=== PATIENT | female | born 1945 | race Caucasian/White ===

== ENCOUNTER 2017-12-04 14:56 | Emergency (ER) | payer MEDICARE ==
[2017-12-04 16:27] LABS: ADD MAN DIFF? NO
[2017-12-04 16:30] LABS: BASO # 0.1 x10^3/uL (0.0-0.2); BASO % 1 % (0-3); EOS # 0.4 x10^3/uL (0.0-0.7); EOS % 5 % (0-3); HEMATOCRIT 38.8 % (36.0-47.0); LYMPH # 2.6 x10^3/uL (1.0-4.8); LYMPH % 37 % (24-48); MEAN CORPUSCULAR HEMOGLOBIN 31 pg (25-35); MEAN CORPUSCULAR HGB CONC 34 g/dL (31-37); MEAN CORPUSCULAR VOLUME 93 fL (79-100); MONO # 0.4 x10^3/uL (0.0-1.1); MONO % 6 % (0-9); NEUT # 3.6 x10^3uL (1.8-7.7); NEUT % 51 % (31-73); PLATELET COUNT 198 x10^3/uL (140-400); RED BLOOD COUNT 4.16 x10^6/uL (3.50-5.40); RED CELL DISTRIBUTION WIDTH 13.8 % (11.5-14.5); WHITE BLOOD COUNT 7.1 x10^3/uL (4.0-11.0)
[2017-12-04 16:36] LABS: BILIRUBIN,URINE NEGATIVE (NEG); CLARITY,URINE CLEAR; COLOR,URINE YELLOW; GLUCOSE,URINE NEGATIVE (NEG); NITRITE,URINE POSITIVE (NEG); PROTEIN,URINE NEGATIVE (NEG-TRACE)
[2017-12-04 16:37] LABS: ANION GAP 10 (6-14); BLOOD UREA NITROGEN 15 mg/dL (7-20); BUN/CREATININE RATIO 15 (6-20); CALCIUM 9.1 mg/dL (8.5-10.1); CARBON DIOXIDE 28 mmol/L (21-32); CHLORIDE 105 mmol/L (98-107); GFR 54.8; GLUCOSE 88 mg/dL (70-99); SODIUM 143 mmol/L (136-145)
[2017-12-04 16:43] LABS: ALBUMIN 3.6 g/dL (3.4-5.0); ALK PHOS 60 U/L (46-116); ALT (SGPT) 28 U/L (14-59); AST (SGOT) 17 U/L (15-37); LIPASE 250 U/L (73-393); TOTAL BILIRUBIN 0.4 mg/dL (0.2-1.0); TOTAL PROTEIN 7.2 g/dL (6.4-8.2)
[2017-12-04] MEDS ORDERED: IOHEXOL 300 MG/ML 100ML VIAL. IV (16:45)
[2017-12-04 16:50] LABS: BACTERIA,URINE MANY /HPF (0-FEW); HYALINE CASTS, URINE FEW /HPF; SQUAMOUS EPITHELIAL CELL,UR MOD /LPF; WBC,URINE 20-40 /HPF (0-4)
[2017-12-04] MEDS ORDERED: CONTRAST GIVEN MC (17:00)
== END 2017-12-04 19:36 | disposition home or self-care (01) ==
LOC: ER 14:56
DX: N39.0 Urinary tract infection, site not specified (principal); K59.00 Constipation, unspecified; I10 Essential (primary) hypertension; F41.9 Anxiety disorder, unspecified; F32.9 Major depressive disorder, single episode, unspecified; M81.0 Age-related osteoporosis without current pathological fracture; Z90.49 Acquired absence of other specified parts of digestive tract; Z88.8 Allergy status to other drugs, medicaments and biological substances
CPT/HCPCS: 36415; 74177; 80053; 81001; 83690; 85025; 96365; 99285-25; J0690

== ENCOUNTER → 2017-12-10 | Outpatient (CLI) | payer MEDICARE | END | disposition home or self-care (01) | LOC: KCIC MAMMO 14:58 | DX: Z12.31 Encounter for screening mammogram for malignant neoplasm of breast (principal) | CPT/HCPCS: 77067 ==

== ENCOUNTER 2018-04-21 11:25 | Emergency (ER) | payer MEDICARE ==
[~2018-04-21] VITALS: Ht 157.5 cm; Wt 68.0 kg
[~2018-04-21 11:25] MED LIST: CEPH500T PO
[2018-04-21 11:58] VITALS: BP 163/90
[2018-04-21 12:37] LABS: BASO # 0.1 x10^3/uL (0.0-0.2); BASO % 1 % (0-3); EOS # 0.2 x10^3/uL (0.0-0.7); EOS % 2 % (0-3); HEMATOCRIT 41.4 % (36.0-47.0); HEMOGLOBIN 14.1 g/dL (12.0-15.5); LYMPH # 2.1 x10^3/uL (1.0-4.8); LYMPH % 25 % (24-48); MEAN CORPUSCULAR HEMOGLOBIN 32 pg (25-35); MEAN CORPUSCULAR HGB CONC 34 g/dL (31-37); MEAN CORPUSCULAR VOLUME 93 fL (79-100); MONO # 0.6 x10^3/uL (0.0-1.1); MONO % 7 % (0-9); NEUT # 5.4 x10^3uL (1.8-7.7); NEUT % 65 % (31-73); PLATELET COUNT 191 x10^3/uL (140-400); RED BLOOD COUNT 4.46 x10^6/uL (3.50-5.40); RED CELL DISTRIBUTION WIDTH 15.3 % (11.5-14.5); WHITE BLOOD COUNT 8.4 x10^3/uL (4.0-11.0)
[2018-04-21 12:37] LABS: BILIRUBIN,URINE NEGATIVE (NEG); CLARITY,URINE CLEAR; COLOR,URINE YELLOW; NITRITE,URINE NEGATIVE (NEG); PH,URINE 5.5; PROTEIN,URINE NEGATIVE (NEG-TRACE); UROBILINOGEN,URINE 0.2 mg/dL (0.2 mg/dL)
[2018-04-21 12:43] LABS: BACTERIA,URINE FEW /HPF (0-FEW); RBC,URINE 0 /HPF (0-2); SQUAMOUS EPITHELIAL CELL,UR FEW /LPF
[2018-04-21 12:46] LABS: CALCIUM 9.4 mg/dL (8.5-10.1); GFR 54.8
[2018-04-21 12:52] LABS: ALBUMIN 4.1 g/dL (3.4-5.0); ALBUMIN/GLOBULIN RATIO 1.1 (1.0-1.7); TOTAL BILIRUBIN 0.4 mg/dL (0.2-1.0); TOTAL PROTEIN 7.7 g/dL (6.4-8.2)
[2018-04-21 12:58] LABS: PROTHROMBIN TIME PATIENT 11.7 SEC (11.7-14.0)
[2018-04-21] MEDS ORDERED: fentaNYL PF VIAL 100 MCG/2 ML VIAL IV ONE (13:00)
--- NOTE | 2018-04-21 14:19 | RAD ---
CT Abdomen and Pelvis without contrast History: Left flank pain for a week Technique: Noncontrast CT imaging was performed of the abdomen and pelvis. Multiplanar images are reviewed. Exposure: One or more of the following individualized dose reduction techniques were utilized for this examination: 1. Automated exposure control 2. Adjustment of the mA and/or kV according to patient size 3. Use of iterative reconstruction technique. Comparison: December 04, 2017 Findings: Accurate evaluation of abdominal visceral organs is limited without intravenous contrast. There is no obvious focal abnormality of the spleen, liver, or pancreas. Previously seen hypodense lesion of the right lobe liver is poorly seen on this noncontrast exam. There has been cholecystectomy. There is diffuse hepatic steatosis. There is no adrenal nodularity. There is somewhat lobulated contour of the bilateral kidneys. There is no hydronephrosis or renal calculus. No convincing ureteral calculus is identified. Accurate evaluation of bowel is limited without oral contrast. There is no significant free air, free fluid, bowel dilatation. There is retained stool greater of the right colon and transverse colon. There is atherosclerotic calcification abdominal aorta. There is multilevel lumbar facet degenerative change. There is more advanced degenerative disc disease L3-4 as seen previously. There is some coronary calcification. While a small 0.3 to 0.4 cm left lower lobe nodule is possible and not seen on previous exam, this could be due to atelectasis. There is reverse S-shaped scoliosis of the thoracolumbar spine. Impression: 1. There is no urolithiasis or hydronephrosis. 2. There is hepatic steatosis. 3. There is retained stool greater of the right and transverse colon. Electronically signed by: Fran Molina MD (04/21/2018 2:16 PM) [id number]
[2018-04-21] MEDS ORDERED: MORPHINE SULFATE 4 MG/ML VIAL. IV ONE (15:00)
--- NOTE | 2018-04-21 15:37 | PHYS DOC ---
Past Medical History Past Medical History: Arthritis, Hypertension Additional Past Medical Histor: OSTEOPOROSIS Past Surgical History: Cholecystectomy, Hysterectomy Additional Past Surgical Histo: TUMOR REMOVED FROM ABDOMEN Alcohol Use: None Drug Use: None Adult General Chief Complaint Chief Complaint: ABDOMINAL PAIN HPI HPI Patient is a 72 year old female presented to the ER for evaluation of left side abdominal pain for 1 week. Patient denied any nausea or vomiting. No fever. No blood in stool, no vomiting blood. Patient said the pain was off and on. She has no history of kidney stone. no CHEST PAIN, NO SHORTNESS OF AIR. Review of Systems Review of Systems Constitutional: Denies fever or chills [] Eyes: Denies change in visual acuity, redness, or eye pain [] HENT: Denies nasal congestion or sore throat [] Respiratory: Denies cough or shortness of breath [] Cardiovascular: No additional information not addressed in HPI [] GI: Positive for abdominal pain, NO nausea, vomiting, bloody stools or diarrhea [] : Denies dysuria or hematuria [] Musculoskeletal: Denies back pain or joint pain [] Integument: Denies rash or skin lesions [] Neurologic: Denies headache, focal weakness or sensory changes [] Endocrine: Denies polyuria or polydipsia [] All other systems were reviewed and found to be within normal limits, except as documented in this note. Current Medications Current Medications Current Medications Medications (Trade) Dose Ordered Sig/Mary Jo Start Time Stop Time Status Last Admin Dose Admin Fentanyl Citrate (Fentanyl 2ml Vial) 75 mcg 1X ONCE 04/21/18 13:00 04/21/18 13:01 DC 04/21/18 13:17 75 MCG Morphine Sulfate (Morphine Sulfate) 4 mg 1X ONCE 04/21/18 15:00 18 15:01 DC 04/21/18 15:16 4 MG Allergies Allergies Allergies Coded Allergies Type Severity Reaction Last Updated Verified povidone-iodine Allergy Unknown 01/15/15 No Physical Exam Physical Exam Constitutional: Well developed, well nourished, no acute distress, non-toxic appearance. [] HENT: Normocephalic, atraumatic, bilateral external ears normal, oropharynx moist, no oral exudates, nose normal. [] Eyes: PERRLA, EOMI, conjunctiva normal, no discharge. [] Neck: Normal range of motion, no tenderness, supple, no stridor. [] Cardiovascular:Heart rate regular rhythm, no murmur [] Lungs & Thorax: Bilateral breath sounds clear to auscultation [] Abdomen: Bowel sounds normal, soft, LLQ tenderness TO PALPATION, no masses, no pulsatile masses. [] Skin: Warm, dry, no erythema, no rash. [] Back: No tenderness, no CVA tenderness. [] Extremities: No tenderness, no cyanosis, no clubbing, ROM intact, no edema. [] Neurologic: Alert and oriented X 3, normal motor function, normal sensory function, no focal deficits noted. [] Psychologic: Affect normal, judgement normal, mood normal. [] Current Patient Data Vital Signs Vital Signs Date Time Temp Pulse Resp B/P (MAP) Pulse Ox O2 Delivery O2 Flow Rate FiO2 04/21/18 11:58 97.5 73 20 163/90 (114) 97 Room Air 97.5 Lab Values Laboratory Tests Test 04/21/18 12:15 04/21/18 12:20 Urine Collection Type Unknown Urine Color Yellow Urine Clarity Clear Urine pH 5.5 Urine Specific [place] 1.010 Urine Protein Negative mg/dL (NEG-TRACE) Urine Glucose (UA) Negative mg/dL (NEG) Urine Ketones (Stick) Negative mg/dL (NEG) Urine Blood Negative (NEG) Urine Nitrite Negative (NEG) Urine Bilirubin Negative (NEG) Urine Urobilinogen Dipstick 0.2 mg/dL (0.2 mg/dL) Urine Leukocyte Esterase Trace (NEG) Urine RBC 0 /HPF (0-2) Urine WBC 1-4 /HPF (0-4) Urine Squamous Epithelial Cells Few /LPF Urine Bacteria Few /HPF (0-FEW) White Blood Count 8.4 x10^3/uL (4.0-11.0) Red Blood Count 4.46 x10^6/uL (3.50-5.40) Hemoglobin 14.1 g/dL (12.0-15.5) Hematocrit 41.4 % (36.0-47.0) Mean Corpuscular Volume 93 fL (79-100) Mean Corpuscular Hemoglobin 32 pg (25-35) Mean Corpuscular Hemoglobin Concent 34 g/dL (31-37) Red Cell Distribution Width 15.3 % (11.5-14.5) H Platelet Count 191 x10^3/uL (140-400) Neutrophils (%) (Auto) 65 % (31-73) Lymphocytes (%) (Auto) 25 % (24-48) Monocytes (%) (Auto) 7 % (0-9) Eosinophils (%) (Auto) 2 % (0-3) Basophils (%) (Auto) 1 % (0-3) Neutrophils # (Auto) 5.4 x10^3uL (1.8-7.7) Lymphocytes # (Auto) 2.1 x10^3/uL (1.0-4.8) Monocytes # (Auto) 0.6 x10^3/uL (0.0-1.1) Eosinophils # (Auto) 0.2 x10^3/uL (0.0-0.7) Basophils # (Auto) 0.1 x10^3/uL (0.0-0.2) Prothrombin Time 11.7 SEC (11.7-14.0) Prothrombin Time INR 0.9 (0.8-1.1) PTT 29 SEC (24-38) Sodium Level 139 mmol/L (136-145) Potassium Level 5.0 mmol/L (3.5-5.1) Chloride Level 103 mmol/L (98-107) Carbon Dioxide Level 29 mmol/L (21-32) Anion Gap 7 (6-14) Blood Urea Nitrogen 17 mg/dL (7-20) Creatinine 1.0 mg/dL (0.6-1.0) Estimated GFR (Cockcroft-Gault) 54.8 BUN/Creatinine Ratio 17 (6-20) Glucose Level 105 mg/dL (70-99) H Calcium Level 9.4 mg/dL (8.5-10.1) Total Bilirubin 0.4 mg/dL (0.2-1.0) Aspartate Amino Transferase (AST) 24 U/L (15-37) Alanine Aminotransferase (ALT) 46 U/L (14-59) Alkaline Phosphatase 80 U/L (46-116) Total Protein 7.7 g/dL (6.4-8.2) Albumin 4.1 g/dL (3.4-5.0) Albumin/Globulin Ratio 1.1 (1.0-1.7) Lipase 130 U/L (73-393) Laboratory Tests 04/21/18 12:20 Laboratory Tests 04/21/18 12:20 EKG EKG [] Radiology/Procedures Radiology/Procedures [][facility] [address] [place] [address] IMAGING REPORT Signed PATIENT: LORENZO CALEDRA ACCOUNT: [id number] : 1945 LOCATION: ER AGE: 72 SEX: F EXAM STATUS: REG ER ORD. PHYSICIAN: DANNA DOVE DO REASON: left flank pain for a week PROCEDURE: CT ABDOMEN PELVIS WO CONTRAST CT Abdomen and Pelvis without contrast History: Left flank pain for a week Technique: Noncontrast CT imaging was performed of the abdomen and pelvis. Multiplanar images are reviewed. Exposure: One or more of the following individualized dose reduction techniques were utilized for this examination: 1. Automated exposure control 2. Adjustment of the mA and/or kV according to patient size 3. Use of iterative reconstruction technique. Comparison: December 04, 2017 Findings: Accurate evaluation of abdominal visceral organs is limited without intravenous contrast. There is no obvious focal abnormality of the spleen, liver, or pancreas. Previously seen hypodense lesion of the right lobe liver is poorly seen on this noncontrast exam. There has been cholecystectomy. There is diffuse hepatic steatosis. There is no adrenal nodularity. There is somewhat lobulated contour of the bilateral kidneys. There is no hydronephrosis or renal calculus. No convincing ureteral calculus is identified. Accurate evaluation of bowel is limited without oral contrast. There is no significant free air, free fluid, bowel dilatation. There is retained stool greater of the right colon and transverse colon. There is atherosclerotic calcification abdominal aorta. There is multilevel lumbar facet degenerative change. There is more advanced degenerative disc disease L3-4 as seen previously. There is some coronary calcification. While a small 0.3 to 0.4 cm left lower lobe nodule is possible and not seen on previous exam, this could be due to atelectasis. There is reverse S-shaped scoliosis of the thoracolumbar spine. Impression: 1. There is no urolithiasis or hydronephrosis. 2. There is hepatic steatosis. 3. There is retained stool greater of the right and transverse colon. Electronically signed by: Silas Erazo MD (04/21/2018 2:16 PM) [email or web address] DICTATED and SIGNED BY: SILAS ERAZO MD DATE: 04/21/18 6990 Course & Med Decision Making Course & Med Decision Making Pertinent Labs and Imaging studies reviewed. (See chart for details) [] Dragon Disclaimer Dragon Disclaimer This electronic medical record was generated, in whole or in part, using a voice recognition dictation system. Departure Departure Impression: Primary Impression: Abdominal pain Additional Impression: Constipation Disposition: 01 HOME, SELF-CARE Condition: STABLE Referrals: ZOE SOTOMAYOR MD (PCP) FOLLOW UP WITH YOUR DOCTOR THIS WEEK Patient Instructions: Abdominal Pain, Constipation, Adult Problem Qualifiers DANNA DOVE DO Apr 21, 2018 15:37
== END 2018-04-21 15:57 | disposition home or self-care (01) ==
LOC: ER 11:25
DX: K59.00 Constipation, unspecified (principal); K76.0 Fatty (change of) liver, not elsewhere classified; I10 Essential (primary) hypertension; M19.90 Unspecified osteoarthritis, unspecified site; Z90.49 Acquired absence of other specified parts of digestive tract; Z90.710 Acquired absence of both cervix and uterus; Z91.041 Radiographic dye allergy status
CPT/HCPCS: 36415; 74176; 80053; 81001; 83690; 85025; 85610; 85730; 87086; 96374; 96375; 99285; J2270; J3010; 87186

== ENCOUNTER → 2018-04-28 | Outpatient (CLI) | payer MEDICARE ==
[2018-04-21 11:58] VITALS: BP 163/90
[~2018-04-28] MED LIST changes: +IOHEXOL 240 MG/ML 50ML VIAL. PO ONE; +IOHEXOL 300 MG/ML 100ML VIAL. IV ONE
--- NOTE | 2018-04-28 13:14 | KCIC ---
CT ABD PELV W/ORAL IV CONTRAST Indication: Left lower quadrant pain, radiating to the back. Cholecystectomy. Hysterectomy. Exposure: One or more of the following individualized dose reduction techniques were utilized for this examination: 1. Automated exposure control 2. Adjustment of the mA and/or kV according to patient size 3. Use of iterative reconstruction technique. Comparison: April 21, 2018 Contrast: Intravenous contrast was given. Oral contrast was given. FINDINGS: Lower thorax: Lung bases are clear. Liver: Diffusely hypodense compatible with steatosis. Hypodense lesions in the right lobe are redemonstrated as compared with an earlier study from December 04, and appear unchanged. Spleen: Unremarkable Pancreas: Unremarkable Adrenals: No evidence of mass. Kidneys: No obvious mass. Urinary tracts: No hydronephrosis. Gallbladder: Surgically absent Lymph nodes: No significant enlargement Vessels: * Aorta: Tortuous and ectatic. No aneurysm. * Major aortic branches: Grossly patent. * Portal venous: Patent GI tract: There may be a anterior duodenal diverticulum measuring about 2 cm, but more likely this just due to some focal distention of the lumen. No acute findings of the duodenum. No bowel obstruction. No evidence of acute colitis. Appendix is not clearly visualized. Reproductive organs:No evidence of mass. Urinary bladder: Incompletely distended, no obvious Peritoneum: No evidence of pneumoperitoneum. No free fluid. Abdominal wall:Unremarkable Spine: Degenerative spondylosis. Mild right S-shaped scoliosis. Bones: No destructive process identified. IMPRESSION: 1. Hepatic steatosis. 2. Small hypodense right hepatic lesions appear similar as prior study. Again, benign etiology such as cysts is favored. Electronically signed by: Juanjo Rojas MD (04/28/2018 1:10 PM) [facility]
== END | disposition home or self-care (01) ==
LOC: KCIC CT 10:39
PROVIDERS: ATTEND Family Medicine
DX: K76.0 Fatty (change of) liver, not elsewhere classified (principal); M41.80 Other forms of scoliosis, site unspecified; M47.899 Other spondylosis, site unspecified; I10 Essential (primary) hypertension; Z90.49 Acquired absence of other specified parts of digestive tract; Z90.710 Acquired absence of both cervix and uterus; Z88.8 Allergy status to other drugs, medicaments and biological substances
CPT/HCPCS: 74177; Q9966; Q9967

== ENCOUNTER → 2018-09-15 | Outpatient (CLI) | payer MEDICARE ==
[~2018-09-15] MED LIST changes: -IOHEXOL 240 MG/ML 50ML VIAL. PO ONE; -IOHEXOL 300 MG/ML 100ML VIAL. IV ONE
--- NOTE | 2018-09-15 14:00 | KCIC ---
EXAM: Head and cervical spine CT without contrast. HISTORY: Neck pain status post fall. TECHNIQUE: Computed tomographic images of the head and cervical spine were obtained without contrast. *One or more of the following individualized dose reduction techniques were utilized for this examination: 1. Automated exposure control. 2. Adjustment of the mA and/or kV according to patient size. 3. Use of iterative reconstruction technique. COMPARISON: None. FINDINGS: Head: There is no acute or subacute hemorrhage. There is no mass effect or midline shift. There is no hydrocephalus. There is mild cerebral volume loss. There are nonspecific areas of hypodensity within the cerebral white matter, likely due to chronic small vessel disease. The orbits are unremarkable. The visualized paranasal sinuses are unremarkable. The mastoid air cells are clear. No calvarial lesion is seen. There is atherosclerosis within the distal vertebral and internal carotid arteries. Spine: There is minimal anterolisthesis of C3 on C4 and C7 on T1, likely degenerative. There is degenerative endplate remodeling at all levels, predominantly C5-C6. There is an ill-defined sclerotic lesion within the left aspect of C3. There few small endplate Schmorl's nodes. At C2-C3, there is a disc bulge and endplate remodeling. There is no stenosis. At C3-C4, there is a disc bulge and endplate remodeling. There is left uncovertebral arthropathy. There is minimal left foraminal stenosis. At C4-C5, there is a left posterior lateral predominant disc bulge and endplate osteophytosis. There is mild left facet arthropathy. There is left uncovertebral arthropathy. There is mild left foraminal stenosis. At C5-C6, there is a disc bulge and endplate osteophytosis. There is left greater than right uncovertebral arthropathy. There is mild right and moderate to severe left foraminal stenosis. At C6-C7, there is a disc bulge. There is no stenosis. IMPRESSION: 1. No acute intracranial finding or evidence of acute cervical spine trauma. 2. Scattered areas of hypodensity within the cerebral white matter, a nonspecific finding likely due to chronic small vessel disease. 3. Multilevel degenerative changes involving the cervical spine, described in detail above. This results in minimal left foraminal stenosis at C3-C4, mild left foraminal stenosis at C4-C5, and mild right and moderate to severe left foraminal stenosis at C5-C6. 4. Small sclerotic lesion within C3. In the absence of known primary malignancy, this may be a bone island. Electronically signed by: Ne Leung MD (09/15/2018 1:55 PM) [id number]
== END | disposition home or self-care (01) ==
LOC: KCIC CT 13:07
PROVIDERS: ATTEND Family Medicine
DX: M48.02 Spinal stenosis, cervical region (principal); M50.81 Other cervical disc disorders, high cervical region; M12.88 Other specific arthropathies, not elsewhere classified, other specified site; I70.0 Atherosclerosis of aorta; I10 Essential (primary) hypertension; Z87.891 Personal history of nicotine dependence; Z91.81 History of falling
CPT/HCPCS: 70450; 72125

== ENCOUNTER → 2018-12-17 | Outpatient (CLI) | payer MEDICARE ==
--- NOTE | 2018-12-17 15:44 | KCIC ---
MRI Brain without contrast History: Chronic headache, history of stroke, previous fall, occipital headaches for 7-8 months Technique: Multiplanar, multisequential noncontrast MR imaging was performed of the brain. Comparison: None Findings: There is no evidence of recent infarct or cytotoxic edema. Ventricular size is within normal limits. There is mild supratentorial involutional change greater near the vertex.There is no significant midline shift, intraaxial mass effect, or focal abnormal extra-axial fluid collection. There is multifocal [id number] T2 and FLAIR hyperintense signal abnormality of the supratentorial parenchyma bilaterally greatest of the frontal parietal white matter, also some foci such as of the periatrial and temporal white matter. There is also some involvement of bilateral basal ganglia. There are small foci of associated volume loss near the right frontal horn, right radiata, and left parietal white matter likely old lacunar infarcts. There is a small focus of old microhemorrhage of the left basal ganglia, also small focus right varun. There is preservation of the major intracranial flow-voids at the skull base. The mastoid air cells are aerated. The cerebellar tonsils are normal in location. There is no significant abnormality of the pineal gland or pituitary gland. There is negligible patchy ethmoid air cell mucosal thickening. There is preserved marrow signal of the clivus. There has been lens surgery bilaterally. Impression: 1. There is no evidence of recent infarct or intracranial mass effect. There is multifocal [id number] T2 and FLAIR hyperintense signal abnormality of the supratentorial parenchyma bilaterally, nonspecific findings more commonly due to to chronic microvascular ischemic disease in a patient this age unless there is known previous history of inflammatory demyelinating disease. There are small old lacunar infarcts as stated, also small foci of old microhemorrhage of the right varun and left basal ganglia. There is mild supratentorial involutional change. Electronically signed by: Fran Molina MD (12/17/2018 3:42 PM) [id number]
== END | disposition home or self-care (01) ==
LOC: KCIC MRI 14:10
PROVIDERS: ATTEND Family Medicine
DX: G93.89 Other specified disorders of brain (principal); G31.9 Degenerative disease of nervous system, unspecified; Z86.73 Personal history of transient ischemic attack (TIA), and cerebral infarction without residual deficits
CPT/HCPCS: 70551

== ENCOUNTER → 2019-06-10 | Outpatient (CLI) | payer MEDICARE ==
--- NOTE | 2019-06-10 12:43 | KCIC ---
EXAM: Dual energy x-ray absorptiometry (DEXA). HISTORY: Post menopausal screening. TECHNIQUE: Dual energy x-ray absorptiometry of the lumbar spine and the left hip was performed. T-score of average bone mineral density based was calculated based on standard deviations above or below the expected young adult normal value. Diagnostic definitions were established by the World Health Organization. FINDINGS: The average bone mineral density associated with L1-L4 is 0.859 g/cm^2, corresponding with a T-score of -1.7. The average total bone mineral density associated with the left hip is 0.682 g/cm^2, corresponding with a T-score of -2.1. No comparison examinations are available. Refer to the worksheets for full detail. IMPRESSION: 1. Osteopenia. Average bone mineral density yields a T-score between -1.0 and -2.5. Fracture risk is increased. Electronically signed by: Elvie Dior MD (06/10/2019 12:40 PM) [facility]
--- NOTE | 2019-06-10 13:16 | KCIC ---
EXAM: Lumbar spine, flexion and extension; thoracic spine, 3 views. HISTORY: Pain. Falls. COMPARISON: None. FINDINGS: Lumbar spine: Frontal, lateral, bilateral oblique, coned sacral and flexion and extension views of the lumbar spine are obtained. There is severe rotatory scoliosis of the thoracolumbar spine with levocurvature centered at the lower thoracic levels and dextrocurvature centered at L4. There is degenerative endplate remodeling with disc space narrowing and osteophytosis primarily along the left aspect of L3-L4. This corresponds with levels of maximum scoliotic curvature. There is minimal grade 1 anterolisthesis at this level. There is minimal retrolisthesis of L4 and L5 and L5 on S1, a component of which is projectional. There is no abnormal motion between flexion and extension. Thoracic spine: 3 views of the thoracic spine are obtained. There is suspected bone demineralization, limiting evaluation of bony detail. No acute fracture is seen. The disc spaces appear preserved. IMPRESSION: 1. Severe rotatory scoliosis of the thoracolumbar spine. There is multilevel degenerative change, primarily along the left aspect of L3-L4. This corresponds with the level of maximum scoliotic curvature. 2. Minimal listhesis at multiple levels, a component of which may be projectional. 3. Suspected bone demineralization. Electronically signed by: Ne Leung MD (06/10/2019 1:13 PM) [place] [id number]
== END | disposition home or self-care (01) ==
LOC: KCIC DEXA 11:57
PROVIDERS: ATTEND Family Medicine
DX: S39.92XA Unspecified injury of lower back, initial encounter (principal); M85.88 Other specified disorders of bone density and structure, other site; M81.0 Age-related osteoporosis without current pathological fracture; M41.85 Other forms of scoliosis, thoracolumbar region; M48.061 Spinal stenosis, lumbar region without neurogenic claudication; M47.816 Spondylosis without myelopathy or radiculopathy, lumbar region; M43.16 Spondylolisthesis, lumbar region; X58.XXXA Exposure to other specified factors, initial encounter; G89.29 Other chronic pain; Y93.89 Activity, other specified; Y92.89 Other specified places as the place of occurrence of the external cause; Y99.8 Other external cause status
CPT/HCPCS: 72072; 72114; 77080

== ENCOUNTER 2020-10-25 14:21 | Emergency (ER) | payer MEDICARE ==
[~2020-10-25] VITALS: Ht 157.5 cm; Wt 61.4 kg
[2020-10-25 14:40] VITALS: BP 163/90
--- NOTE | 2020-10-25 15:04 | PHYS DOC ---
Past Medical History Past Medical History: Arthritis, Hypertension Additional Past Medical Histor: OSTEOPOROSIS Past Surgical History: Cholecystectomy, Hysterectomy Additional Past Surgical Histo: TUMOR REMOVED FROM ABDOMEN Smoking Status: Never Smoker Alcohol Use: None Drug Use: None General Adult EDM: Chief Complaint: ABDOMINAL PAIN HPI: HPI: Patient is a 75 year old female who presented to ER due to abdominal pain with distention that began worse over the last 2 weeks. Patient has been constipated for 2 weeks, she finally had a bowel move today but not very much. Patient complained of worsening pain. Patient denies any cough or fever, no chest pain. Patient had nausea and vomiting. Patient denies any blood in her stool. Review of Systems: Review of Systems: Constitutional: Denies fever or chills. [] Eyes: Denies change in visual acuity. [] HENT: Denies nasal congestion or sore throat. [] Respiratory: Denies cough or shortness of breath. [] Cardiovascular: Denies chest pain or edema. [] GI: positive for abdominal pain, nausea, vomiting, no bloody stools or diarrhea. [] : Denies dysuria. [] Musculoskeletal: Denies back pain or joint pain. [] Integument: Denies rash. [] Neurologic: Denies headache, focal weakness or sensory changes. [] Endocrine: Denies polyuria or polydipsia. [] Lymphatic: Denies swollen glands. [] Psychiatric: Denies depression or anxiety. [] Heart Score: C/O Chest Pain: N/A Risk Factors: Risk Factors: DM, Current or recent (<one month) smoker, HTN, HLP, family history of CAD, obesity. Risk Scores: Score 0 - 3: 2.5% MACE over next 6 weeks - Discharge Home Score 4 - 6: 20.3% MACE over next 6 weeks - Admit for Clinical Observation Score 7 - 10: 72.7% MACE over next 6 weeks - Early Invasive Strategies Allergies: Allergies: Allergies Coded Allergies Type Severity Reaction Last Updated Verified povidone-iodine Allergy Unknown 01/15/15 No Physical Exam: PE: Constitutional: Well developed, well nourished, no acute distress, non-toxic appearance. [] HENT: Normocephalic, atraumatic, bilateral external ears normal, oropharynx moist, no oral exudates, nose normal. [] Eyes: PERRLA, EOMI, conjunctiva normal, no discharge. [] Neck: Normal range of motion, no tenderness, supple, no stridor. [] Cardiovascular:Heart rate regular rhythm, no murmur [] Lungs & Thorax: Bilateral breath sounds clear to auscultation [] Abdomen: Hypoactive bowel sound, diffuse tenderness to palpation with abdominal distension, no pulsatile masses. [] Skin: Warm, dry, no erythema, no rash. [] Back: No tenderness, no CVA tenderness. [] Extremities: No tenderness, no cyanosis, no clubbing, ROM intact, no edema. [] Neurologic: Alert and oriented X 3, normal motor function, normal sensory function, no focal deficits noted. [] Psychologic: Affect normal, judgement normal, mood normal. [] EKG: EKG: [] Radiology/Procedures: Radiology/Procedures: [][facility] [address] [place] [address] IMAGING REPORT Signed PATIENT: LORENZO CALDERA ACCOUNT: [id number] : 1945 LOCATION: ER AGE: 75 SEX: F EXAM STATUS: REG ER ORD. PHYSICIAN: DANNA DOVE DO REASON: ABDOMINAL PAIN, DISTENTION PROCEDURE: CT ABDOMEN PELVIS WO CONTRAST Exam: CT of abdomen and pelvis without contrast INDICATION: Abdominal pain, distention TECHNIQUE: Sequential axial images through the abdomen and pelvis obtained without IV contrast. Sagittal and coronal reformatted images were reconstructed from the axial data and reviewed. Comparisons: None FINDINGS: Heart size is normal. No pericardial. Visualized lung bases are clear. No pleural effusion. Evaluation of the solid organs is limited secondary to noncontrast technique. There are at least 2 vague hypoattenuating lesions noted within the liver largest is in the right hepatic lobe series 2 image 19 measuring approximately 1.5 cm incompletely characterized on noncontrast exam. These are essentially stable when compared to study in 2018. Spleen, pancreas, and adrenals are unremarkable. Gallbladder surgically absent. No perinephric inflammation or hydronephrosis. No renal or ureteral calculi are identified. Bladder is decompressed not well evaluated. Uterus is absent. No abnormal adnexal mass. Mild diffuse wall thickening involving the descending and sigmoid colon without evidence of acute diverticulitis. Remainder of the large and small bowel are unremarkable. Appendix is nonidentified. No free intra-abdominal air or fluid. No obstruction. Abdominal aorta has a normal course and caliber. No enlarged intra-abdominal lymph nodes are identified. No suspicious osseous lesions or acute fractures. IMPRESSION: 1. Mild wall thickening involving the sigmoid colon may relate to mild colitis. 2. No evidence for obstruction or ascites. Exposure: One or more of the following in the visualized dose reduction techniques were utilized for this examination: 1. Automated exposure control 2. Adjustment of the MA and/or KV according to patient size 3. Use of iterative of reconstructive technique Electronically signed by: Em Mejia MD (10/25/2020 3:32 PM) [facility] DICTATED and SIGNED BY: EM MEJIA MD DATE: 10/25/20 [id number] 0 Course & Med Decision Making: Course & Med Decision Making Pertinent Labs and Imaging studies reviewed. (See chart for details) Patient is a 75-year-old female who presented to ER due to abdominal pain and constipation. CT scan of the abdomen pelvic did not show an obstruction. Patient will be discharged home with recommendation for constipation medication. Patient will need to follow-up with her family doctor for reevaluation this week. Dragon Disclaimer: Dragon Disclaimer: This electronic medical record was generated, in whole or in part, using a voice recognition dictation system. Departure Departure Impression: Primary Impression: Abdominal pain Additional Impression: Constipation Disposition: 01 DC HOME SELF CARE/HOMELESS Condition: STABLE Referrals: ZOE SOTOMAYOR MD (PCP) call your family doctor for follow up this week. Patient Instructions: Abdominal Pain, Constipation, Adult Additional Instructions: Thank you for visiting our Emergency Department. We appreciate you trusting us with your care. If any additional problems come up don't hesitate to return to visit us. Please follow up with your primary care provider so they can plan additional care if needed and know about the problem that you had. If symptoms worsen come back to the Emergency Department. Any concerning symptoms that start such as chest pain, shortness of air, weakness or numbness on one side of the body, running high fevers or any other concerning symptoms return to the ER. Scripts Bisacodyl (DULCOLAX) 5 Mg Tablet.dr 10 MG PO PRN DAILY PRN for CONSTIPATION, #20 TAB 0 Refills Prov: DANNA DOVE DO 10/25/20 DANNA DOVE DO Oct 25, 2020 15:04
--- NOTE | 2020-10-25 15:35 | RAD ---
Exam: CT of abdomen and pelvis without contrast INDICATION: Abdominal pain, distention TECHNIQUE: Sequential axial images through the abdomen and pelvis obtained without IV contrast. Sagit khadar and coronal reformatted images were reconstructed from the axial data and reviewed. Comparisons: None FINDINGS: Heart size is normal. No pericardial. Visualized lung bases are clear. No pleural effusion. Evaluation of the solid organs is limited secondary to noncontrast technique. There are at least 2 vague hypoattenuating lesions noted within the liver largest is in the right hep atic lobe series 2 image 19 measuring approximately 1.5 cm incompletely characterized on noncontrast exam. These are essentially stable when compared to study in 2018. Spleen, pancreas, and adrenals are unremarkable. Gallbladder surgically absent. No perinephric inflammation or hydronephrosis. No renal or ureteral calculi are identified. Bladder is decompressed not well evaluated. Uterus is absent. No abnormal adnexal mass. Mild diffuse wall thickening involving the descending and sigmoid colon without evidence of acute div erticulitis. Remainder of the large and small bowel are unremarkable. Appendix is nonidentified. No f ree intra-abdominal air or fluid. No obstruction. Abdominal aorta has a normal course and caliber. No enlarged intra-abdominal lymph nodes are identified. No suspicious osseous lesions or acute fractures. IMPRESSION: 1. Mild wall thickening involving the sigmoid colon may relate to mild colitis. 2. No evidence for obstruction or ascites. Exposure: One or more of the following in the visualized dose reduction techniques were utilized for this examination: 1. Automated exposure control 2. Adjustment of the MA and/or KV according to patient size 3. Use of iterative of reconstructive technique Electronically signed by: Em Ray MD (10/25/2020 3:32 PM) [facility]
[2020-10-25 15:41] LABS: BASO # 0.1 x10^3/uL (0.0-0.2); BASO % 1 % (0-3); EOS # 0.3 x10^3/uL (0.0-0.7); EOS % 4 % (0-3); HEMATOCRIT 40.5 % (36.0-47.0); HEMOGLOBIN 13.5 g/dL (12.0-15.5); LYMPH % 24 % (24-48); MEAN CORPUSCULAR HEMOGLOBIN 33 pg (25-35); MEAN CORPUSCULAR HGB CONC 33 g/dL (31-37); MEAN CORPUSCULAR VOLUME 98 fL (79-100); MONO # 0.5 x10^3/uL (0.0-1.1); MONO % 6 % (0-9); NEUT # 5.3 x10^3/uL (1.8-7.7); NEUT % 65 % (31-73); PLATELET COUNT 270 x10^3/uL (140-400); RED BLOOD COUNT 4.13 x10^6/uL (3.50-5.40); RED CELL DISTRIBUTION WIDTH 14.4 % (11.5-14.5); WHITE BLOOD COUNT 8.2 x10^3/uL (4.0-11.0)
[2020-10-25 15:51] LABS: CALCIUM 9.5 mg/dL (8.5-10.1); GFR 54.3; POTASSIUM 4.7 mmol/L (3.5-5.1)
[2020-10-25 15:57] LABS: ALBUMIN/GLOBULIN RATIO 0.9 (1.0-1.7); MAGNESIUM 2.2 mg/dL (1.8-2.4); TOTAL BILIRUBIN 0.3 mg/dL (0.2-1.0); TOTAL PROTEIN 8.4 g/dL (6.4-8.2)
[2020-10-25] MEDS ORDERED: METOCLOPRAMIDE HCL 10 MG/2 ML VIAL. IVP ONE (16:00)
[2020-10-25] MEDS ORDERED: MORPHINE SULFATE 4 MG/ML VIAL. IV ONE (16:00)
[2020-10-25] MEDS ORDERED: fentaNYL PF VIAL 100 MCG/2 ML VIAL IVP ONE (16:00)
[2020-10-25] MEDS ORDERED: IV NORMAL SALINE 1000ML BAG 1,000 ML IV ONE (16:00)
[2020-10-25] MEDS ORDERED: BISA-42 PO (16:52)
[2020-10-25 16:58] LABS: BILIRUBIN,URINE NEGATIVE (NEG); CLARITY,URINE CLEAR; COLOR,URINE YELLOW; NITRITE,URINE NEGATIVE (NEG); PROTEIN,URINE NEGATIVE (NEG-TRACE); UROBILINOGEN,URINE 0.2 mg/dL (0.2 mg/dL)
[2020-10-25] MEDS ORDERED: MAGNESIUM CITRATE 296 ML SOLUTION. PO ONE (17:00)
[2020-10-25 17:32] LABS: AMORPHOUS SEDIMENT,UR PRESENT /HPF
[2020-10-25 17:33] LABS: RBC,URINE RARE /HPF (0-2); WBC,URINE OCC /HPF (0-4)
[2020-10-25 17:34] LABS: BACTERIA,URINE 0 /HPF (0-FEW)
== END 2020-10-25 17:00 | disposition home or self-care (01) ==
LOC: ER 14:21
DX: K59.00 Constipation, unspecified (principal); R10.84 Generalized abdominal pain; R14.0 Abdominal distension (gaseous); R11.2 Nausea with vomiting, unspecified; M19.90 Unspecified osteoarthritis, unspecified site; I10 Essential (primary) hypertension; Z90.710 Acquired absence of both cervix and uterus; Z90.49 Acquired absence of other specified parts of digestive tract; Z98.890 Other specified postprocedural states; Z88.8 Allergy status to other drugs, medicaments and biological substances
CPT/HCPCS: 36415; 74176; 80053; 81001; 83690; 83735; 85025; 96361; 96374; 96375; 99284; J2765; J3010; J7030

== ENCOUNTER → 2020-12-23 | Outpatient (CLI) | payer MEDICARE ==
[~2020-12-23] MED LIST changes: +BISA-42 PO
--- NOTE | 2020-12-23 14:31 | KCIC ---
EXAM: Lumbar spine MRI without contrast. HISTORY: Pain. TECHNIQUE: Multiplanar, multisequence magnetic resonance imaging of the lumbar spine was performed wi thout contrast. COMPARISON: None. FINDINGS: There is lumbar scoliosis. There is 2 mm retrolisthesis of L3 on L4 and 2 mm anterolisthesi s of L4 on L5. There is degenerative endplate remodeling with disc space narrowing and osteophytosis primarily along the left aspect of L3-L4. This corresponds with the level of maximum scoliotic concav ity. There is associated disc space narrowing and Schmorl's node formation at this level. There is no fracture or suspicious osseous lesion. The conus terminates at L1-L2. At L1-L2, there is no stenosis. At L2-L3, there is a right lateral predominant disc bulge and endplate osteophytosis. There is no mike nosis. At L3-L4, there is a left lateral predominant disc bulge and endplate osteophytosis. There is mild le ft facet arthropathy. There is slight retrolisthesis. There is moderate left foraminal stenosis. Ther e is narrowing of the left lateral recess. At L4-L5, there is a shallow left foraminal disc protrusion with minimal superior extrusion superimpo sed on a disc bulge and endplate remodeling. There is mild left facet arthropathy. There is slight an terolisthesis. There is no stenosis. At L5-S1, there is mild pleural facet arthropathy. There is mild right foraminal stenosis. IMPRESSION: 1. Degenerative change involving the lumbar spine, described in detail above. This is associated with moderate left foraminal stenosis and narrowing of the left lateral recess at L3-L4 and mild right fo raminal stenosis at L5-S1. 2. Lumbar scoliosis and slight listhesis at the aforementioned levels. Electronically signed by: Ne Leung MD (12/23/2020 2:29 PM) [id number]
== END ==
LOC: KCIC MRI 12:21
PROVIDERS: ATTEND Family Medicine
DX: M47.816 Spondylosis without myelopathy or radiculopathy, lumbar region (principal); M48.07 Spinal stenosis, lumbosacral region; M43.16 Spondylolisthesis, lumbar region; M25.78 Osteophyte, vertebrae; R29.898 Other symptoms and signs involving the musculoskeletal system
CPT/HCPCS: 72148

== ENCOUNTER → 2021-01-09 | Outpatient (CLI) | payer MEDICARE ==
--- NOTE | 2021-01-09 13:07 | KCIC ---
EXAM: Cervical spine MRI without contrast. HISTORY: Right hand weakness. TECHNIQUE: Multiplanar, multisequence magnetic resonance imaging of the cervical spine was performed without contrast. COMPARISON: CT dated 09/15/2018. FINDINGS: There is 2 mm anterolisthesis of C3 on C4. There is degenerative endplate remodeling with d isc space narrowing predominantly at C4-C5 and C5-C6. There is a mild chronic superior endplate depre ssion at T3. There is slight deformation of the cervical spinal cord at multiple levels due to centra l canal stenosis. There is no spinal cord signal abnormality to suggest myelomalacia or edema. There is no fracture. There is no suspicious osseous lesion. At C2-C3, there is mild left facet arthropathy. There is no stenosis. At C3-C4, there is a disc bulge and endplate remodeling. There is no stenosis. At C4-C5, there is a left lateral recess to foraminal disc protrusion and osteophyte complex superimp osed on a disc bulge and endplate osteophytosis. There is mild left facet arthropathy. There is left greater than right uncovertebral arthropathy. There is buckling of the ligamentum flavum. There is mi ld right and severe left foraminal stenosis. There is deformation of the left ventral aspect of the s charles cord and mild central canal stenosis measuring 8.2 mm in anterior posterior dimension. At C5-C6, there is a disc bulge and endplate osteophytosis. There is mild bilateral facet arthropathy . There is bilateral uncovertebral arthropathy. There is severe bilateral foraminal stenosis. There i s flattening of the ventral aspect of spinal cord and mild central canal stenosis measuring 8.7 mm in anterior posterior dimension. At C6-C7, there is no stenosis. IMPRESSION: 1. Multilevel degenerative change involving the cervical spine, described in detail above. This is as sociated with mild right and severe left foraminal and mild central canal stenosis at C4-5 and severe bilateral foraminal and mild central canal stenosis at C5-C6. 2. Slight deformation of the cervical spinal cord at multiple levels due to central canal stenosis. T here is T2 hyperintensity within the left dorsal aspect of the spinal cord at the mid aspect of C5 wh ich is only seen on a single axial image and is likely artifactual. There is no convincing spinal cor d signal abnormality. Electronically signed by: Ne Leung MD (01/09/2021 1:05 PM) [id number]
== END ==
LOC: KCIC MRI 12:22
PROVIDERS: ATTEND Family Medicine
DX: M47.812 Spondylosis without myelopathy or radiculopathy, cervical region (principal); M48.02 Spinal stenosis, cervical region; R29.898 Other symptoms and signs involving the musculoskeletal system; M46.92 Unspecified inflammatory spondylopathy, cervical region
CPT/HCPCS: 72141

== ENCOUNTER → 2021-01-16 | Outpatient (CLI) | payer MEDICARE ==
[~2021-01-16] MED LIST changes: +ALPR1TAB6 PO; +HYDR-2769 PO; +LACT10PA3 PO; +LAMO25TA5 PO; +LEVO50TA5 PO; +LISI1TAB37 PO; +QUET25TA5 PO; +TIZA4TAB2 PO
--- NOTE | 2021-01-16 14:03 | PDOC1 ---
INITIAL PAIN CONSULT DATE OF SERVICE: DOS: DATE: 01/16/21 TIME: 13:57 CHIEF COMPLAINT: Chief Complaint: Neck and right upper extremity pain Mid and low back pain with right lower extremity pain HISTORY OF PRESENT ILLNESS: 75-year-old female presents history of pain base the neck shoulder upper back mid back low back and left lower extremity for about 6 years not the result of any specific injections that he is aware but is beginning worse with activity with time and patient has had difficulty sleeping secondary to the pain chief complaint is the base the neck and shoulder on the right side but also upper back mid back with radiating pain in the left lower extremity as well in the posterior gluteus lateral thigh and anterior thigh left and right patient reports she is done physical therapy in the past but was told by back surgeon not to do therapy because her bones were too brittle patient also has had chiropractic treatment physical therapy as well as trigger point injections and epidural steroid injection which she had a significant adverse reaction to the steroid where she lost some consciousness and had a difficult time with memory. Patient is also tried hydrocodone which does help her pain by about 50% or so. 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 He did have MRI scans of both the cervical and lumbar spines showed multilevel degenerative changes with severe bilateral foraminal canal stenosis C5-6 and the lumbar spine showing multilevel degenerative change worse at L3-4 and L4-5 with left paracentral prominent disc bulge and shallow left foraminal disc protrusions. PAST MEDICAL HISTORY: PMH: Hypertension, arthritis, osteoporosis, difficulty urinating PREVIOUS SURGERIES: Past Surgical Hx: Cataract extractions, hysterectomy, breast biopsy, cholecystectomy CURRENT MEDICATIONS: Current Meds: Active Scripts Medications Dose Route/Sig Max Daily Dose Days Date Category Lamictal (Lamotrigine) 25 Mg Tablet 2 Tab PO DAILY 01/16/21 Reported Alprazolam 1 Mg Tablet 1 Tab PO TID 01/16/21 Reported Seroquel (Quetiapine Fumarate) 25 Mg Tablet 1 Tab PO QHS 01/16/21 Reported Lisinopril-Hctz 20-12.5 Mg Tab (Lisinopril/Hydrochlorothiazide) 1 Each Tablet 1 Tab PO DAILY 01/16/21 Reported Tizanidine Hcl 4 Mg Tablet 1 Tab PO TID 01/16/21 Reported Hydrocodone-Apap 10-325 (Hydrocodone Bit/Acetaminophen) 1 Tab Tablet 1 Tab PO PRN Q6HRS PRN 01/16/21 Reported Lactulose 10 Gm Packet 10 Gm PO DAILY 01/16/21 Reported Levothyroxine Sodium 50 Mcg Tablet 1 Tab PO DAILY 01/16/21 Reported Dulcolax (Bisacodyl) 5 Mg Tablet.dr 10 Mg PO PRN DAILY PRN 10/25/20 Rx ALLERGIES; Allergies: Coded Allergies: morphine (Verified Allergy, Intermediate, 01/16/21) povidone-iodine (Unverified Allergy, Intermediate, 01/16/21) Uncoded Allergies: steroids (Allergy, Intermediate, confusion, 01/16/21) FAMILY HISTORY: Family Hx: No major medical problems or conditions that she is aware of SOCIAL HISTORY: Social Hx: Patient is out of alcohol does not smoke says any illegal illicit recreational drugs is lives with her spouse lives locally in [facility] and is currently retired REVIEW OF SYSTEMS: ROS: Positive for those items mentioned in history of present illness, all systems are reviewed, otherwise negative ,and are complete full and well-documented on patient's chart. PHYSICAL EXAM: VS: Blood pressure is 124/70 pulse is 53 respirations 18 temperature 98.0 F height 5 feet 2 inches weight is 138 pounds PE: PHYSICAL EXAMINATION: GENERAL: The patient is awake, alert, oriented, appropriate, very pleasant demeanor HEENT: Shows normocephalic, atraumatic. Extraocular movements are intact and symmetrical. Oral cavity: Mucous membranes moist and pink. NECK: Shows anterior throat supple without palpable lymphadenopathy noted. Swallow reflex symmetrical. CHEST: Shows normal on inspection. Breath sounds are clear bilaterally, distant but no rales rhonchi wheezes auscultated. HEART: Shows S1, S2 clear. No murmurs auscultated. ABDOMEN: Soft, nontender, nondistended. No palpable organomegaly is noted. No rebound or guarding demonstrated. BACK: Shows spine grossly in the midline. Normal-appearing cervical lordotic curvature. There is increased thoracic kyphosis, some flattening of the lumbar lordotic curvature. Lumbar paraspinous muscles show symmetrical on inspection, on palpation shows some moderate tenderness diffusely throughout the upper, middle and lower distribution of the paraspinous muscles bilaterally and also into the lower thoracic paraspinous musculature, firm and tender, but without specific trigger points, without radiation of pain. The patient has good rotational motion of the lumbar spine, both laterally as well as extension and flexion without significant difficulty. No tenderness over the spinous processes, sacrum or sacroiliac regions. EXTREMITIES: Lower extremities show deep tendon reflexes 1+ in the patellar and tendo calcaneus tendons. Motor exam is 5 on a scale of 5 with right dorsiflexion, extension, quadriceps and hamstring flexion and 5/5 on the left. Peripheral pulses are 1+ posterior tibial. No peripheral edema is noted bilaterally. Lower extremities are warm and dry to touch, equal in color and appearance. 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 Peripheral pulses are 2+ radial. SKIN: Shows warm and dry, good turgor. No edema. No sores, rashes or bruising throughout. IMPRESSION: Impression: 75-year-old female with approximate 6-year history pain base the neck and shoulders upper back mid back and low back with radiating pain in the upper extremities and lower extremities. Hypertension Arthritis Osteoporosis Plan: Options were discussed with the patient including conservative medical management physical therapies and interventional techniques. Patient is against any interventional techniques as she did have a very significant adverse reaction with previous epidural steroid injection. We discussed therapy and will have her present for water therapy as she does belong to her local [facility] and has free access to the pool and water aerobics programs. Patient will follow up after water therapy as scheduled. TOREY CARLTON MD Jan 16, 2021 14:02
== END | disposition home or self-care (01) ==
LOC: PNCL 11:49
PROVIDERS: ATTEND Anesthesiology
DX: M54.2 Cervicalgia (principal); M79.601 Pain in right arm; M54.5 Low back pain; M79.604 Pain in right leg; I10 Essential (primary) hypertension; M19.90 Unspecified osteoarthritis, unspecified site; M81.0 Age-related osteoporosis without current pathological fracture; Z90.49 Acquired absence of other specified parts of digestive tract; Z90.710 Acquired absence of both cervix and uterus; Z98.890 Other specified postprocedural states; Z88.6 Allergy status to analgesic agent; Z88.8 Allergy status to other drugs, medicaments and biological substances; Z91.041 Radiographic dye allergy status; Z79.899 Other long term (current) drug therapy
CPT/HCPCS: G0463

== ENCOUNTER → 2021-12-18 | Outpatient (CLI) | payer MEDICARE ==
[~2021-12-18] MED LIST changes: +IOHEXOL 240 MG/ML 50ML VIAL. PO ONE; +IOHEXOL 300 MG/ML 100ML VIAL. IV ONE; +TIZA-75 PO; -TIZA4TAB2 PO
--- NOTE | 2021-12-19 07:47 | KCIC ---
Examination: CT abdomen pelvis with IV contrast and oral contrast HISTORY: History of constipation, left-sided abdominal pain COMPARISON: 10/26/2019 TECHNIQUE: Axial CT images of abdomen pelvis were performed with oral and IV contrast. Coronal and sa gittal reformats are performed. Exposure: One or more of the following individualized dose reduction techniques were utilized for th is examination: 1. Automated exposure control 2. Adjustment of the mA and/or kV according to patien t size 3. Use of iterative reconstruction technique FINDINGS: Mild bibasilar lung atelectasis. No evidence of free air identified in the abdomen Cystic structures identified in the right lobe of the liver with the largest measuring 1.6 cm likely cyst similar to prior exam. The spleen, adrenals grossly appears unremarkable. Cholecystectomy change s The stomach is mildly distended. The visualized pancreas grossly appears unremarkable The small bowel is nondilated. Feces and gas noted in the colon. Mild thickened appearance of the wal l of the proximal sigmoid colon. Urinary bladder is mildly distended. The bilateral kidneys enhance symmetrically. Moderate degenerati ve changes lumbar spine. IMPRESSION: 1.Mild thickened appearance of the wall of the proximal sigmoid colon could be due to nondistention o r mild colitis. Electronically signed by: Pérez Zeng MD (12/18/2021 2:30 PM) [id number]
== END ==
LOC: KCIC CT 12:18
PROVIDERS: ATTEND Family Medicine
DX: J98.11 Atelectasis (principal); K76.89 Other specified diseases of liver; N32.89 Other specified disorders of bladder; M47.816 Spondylosis without myelopathy or radiculopathy, lumbar region; K59.00 Constipation, unspecified
CPT/HCPCS: 74177; 82565; Q9966; Q9967